=== PATIENT | female | born 1950 | race Caucasian/White ===

== ENCOUNTER 2023-02-20 11:49 | Inpatient (IN) | payer MEDICARE, SELFPAY ==
[2023-02-20] VITALS (41 sets, daily range): BP systolic 72–120; BP diastolic 42–73; PULSE 73–105; RESP 16–35; TEMP 36.4–36.8; O2SAT 73–98
--- NOTE | ~2023-02-20 | XR_ITS ---
EXAMINATION: XR chest 1V portable 02/20/2023 14:07 INDICATION: Shortness of breath PROCEDURE: AP portable chest COMPARISON: No prior studies for comparison. FINDINGS: The lungs are clear. The cardiomediastinal silhouette is within normal limits. There are no pleural effusions. There is no pneumothorax suspected. IMPRESSION: 1: NO ACUTE CARDIOPULMONARY DISEASE. Reviewed, dictated and finalized at location L. ET AND PULLEY MACHINE OPERATOR
--- NOTE | ~2023-02-20 | CT_ITS ---
EXAMINATION: CT brain wo con DATE: 02/21/2023 10:57 INDICATION: Confusion. Slurred speech. TECHNIQUE: Computed tomography (CT) of the head was performed without intravenous contrast. Sagittal and coronal reconstructions were performed. The mA was adjusted according to patient size. Iterative reconstruction technique was employed. The dose-length product was 681.00 mGy-cm. COMPARISON: None FINDINGS: No acute intracranial hemorrhage, acute infarction or abnormal extra axial fluid collection. Small ol d lacunar infarct versus more likely prominent choroid fissure cyst at the inferior left basal gangli a. Symmetric prominence of the sulci consistent with mild age-appropriate diffuse cerebral volume los s. Ventricles are normal and symmetric. No mass/mass effect. Changes of bilateral intraocular lens r eplacement. The orbits and mastoid air cells are normal. Moderate mucosal thickening throughout the p aranasal sinuses. Intracranial calcified cerebral atherosclerosis is noted. IMPRESSION: 1. No acute intracranial process. 2. Old lacunar infarct versus more likely prominent choroid fissure cyst at the inferior left basal g anglia. Reviewed, dictated and finalized at location A. RVISOR GENERAL IMPRESSION: 1. No acute intracranial process. 2. Old lacunar infarct versus more likely prominent choroid fissure cyst at the inferior left basal ganglia.
--- NOTE | ~2023-02-20 | US_ITS ---
EXAMINATION: US venous doppler [facility] DATE: 02/20/2023 16:07 INDICATION: Shortness of breath. TECHNIQUE: Grayscale images without and with compression and Doppler images of the bilateral lower ex tremity veins were obtained. COMPARISON: None FINDINGS: The right common femoral vein, profunda (deep) femoral vein, femoral vein, popliteal vein, peroneal v ein, posterior tibial veins, gastrocnemius vein, and greater saphenous vein are patent. The left common femoral vein, profunda (deep) femoral vein, femoral vein, popliteal vein, peroneal v ein, posterior tibial veins, gastrocnemius vein, and greater saphenous vein are patent. IMPRESSION: Patent bilateral lower extremity veins. No evidence of deep venous thrombosis. Reviewed, dictated and finalized at location K. SCALER
--- NOTE | ~2023-02-20 | US_ITS ---
EXAMINATION: US renal BI DATE: 02/21/2023 11:05 INDICATION: Acute renal insufficiency TECHNIQUE: Multiple ultrasound grayscale images of the kidneys were obtained. COMPARISON: None. FINDINGS: The right kidney is not visualized and likely either developmentally or surgically absent. The left k idney measures 11.6 x 6.9 x 6.0 cm. The left kidney demonstrates normal echogenicity with no hydronep hrosis or shadowing renal stones. The bladder is decompressed which limits evaluation. IMPRESSION: 1. Normal left kidney without hydronephrosis. 2. Right kidney are visualized on the other developmental were surgically absent. Correlate with clin ical/surgical history. Reviewed, dictated and finalized at location A. N CONTROL ELECTRONIC TECHNICIAN IMPRESSION: 1. Normal left kidney without hydronephrosis. 2. Right kidney are visualized on the other developmental were surgically absen t. Correlate with clinical/surgical history.
[2023-02-20] MEDS: SODIUM CHLORIDE 0.9% IV 1,000 ML 999 ML IV CONT ×3 (12:52→15:38)
[2023-02-20] MEDS: Please add drug allergy info to patient profile. 1 EACH XX (12:52)
[2023-02-20 13:20] LABS: Basophils Percent Auto 0.3 % (0.2-1.2); Eosinophils Absolute Auto 0.1 K/mm3 (0-0.3); Eosinophils Percent Auto 0.6 % (0-4.4); Hematocrit 43.5 % (37.0-47.0); Hemoglobin 14.2 g/dL (12.0-15.0); Immature Granulocyte Absolute 0.04 K/mm3 (0.00-0.031); Immature Granulocyte Percent A 0.4 % (0-0.5); Lymphocytes Absolute Auto 1.72 K/mm3 (0.9-3.2); Lymphocytes Percent Auto 16.9 % (18.3-44.2); Mean Corpuscular HGB Conc 32.6 g/dl (32-36); Mean Corpuscular Hemoglobin 31.8 pg (26-34); Mean Corpuscular Volume 97.3 fl (80-100); Mean Platelet Volume 10.9 fl (7.4-10.4); Monocytes Absolute Auto 1.2 K/mm3 (0.1-0.6); Monocytes Percent Auto 12.1 % (2.6-8.5); Neutrophils Absolute Auto 7.1 K/mm3 (1.3-6.7); Neutrophils Percent Auto 69.7 % (45.5-73.1); Platelet Count Result 255 k/mm3 (150-375); Red Blood Count 4.47 M/mm3 (4.2-5.4); Red Cell Distribution Width 13.2 % (11.5-14.5); White Blood Count 10.2 K/mm3 (4.5-10.0)
--- NOTE | 2023-02-20 13:23 | ECG_ITS ---
Measurements Intervals [place] Rate: 84 P: AR: 0 QRS: -4 QRSD: 84 T: 72 QT: 353 QTc: 419 Interpretive Statements ATRIAL FIBRILLATION MINIMAL VOLTAGE CRITERIA FOR LVH, CONSIDER NORMAL VARIANT [MEETS CRITERIA IN ONE OF: R(aVL), S(V1), R(V5), R(V5/V6)+S(V1)] INFERIOR MYOCARDIAL INFARCTION , PROBABLY OLD [40+ ms Q WAVE AND/OR ST/T ABNORMALITY IN II/aVF] NO PREVIOUS ECG AVAILABLE FOR COMPARISON Electronically Signed On 02-20-2023 16:09:11 WARRANTY COORDINATOR by Kim Mcclendon M.D.
--- NOTE | 2023-02-20 13:24 | ED.SOB ---
HPI - SOB/Dyspnea General Chief Complaint: Shortness of Breath/Dyspnea Stated Complaint: difficulty breathing Time Seen by Provider: 02/20/23 13:10 Source: patient and RN notes reviewed Mode of arrival: ambulatory Limitations: altered mental status History of Present Illness HPI Narrative: This is a 72 year old with history of hypothyroid, dementia, hypertension who presents with family for evaluation of difficulty breathing and confusion. Her family states patient is in town to visit a sister and she is from [place], [place]. THey think that patient was takin her medications wrong on arrival. They state 2 days ago she had an episode in which she seems to have difficulty breathing but that resolved. Today they noticed that she seem to have difficulty again . PAtient reports she has been having shortness of breath for 1 week. She denies cough, runny nose or congestion. She reports nausea and vomiting today. She also reports diarrhea starting this morning. She has intermittent epigastric pain. She denies any fever or chills. Related Data Allergies Allergy/AdvReac Type Severity Reaction Status Date / Time Penicillins AdvReac Unknown Verified 02/20/23 13:24 Review of Systems Constitutional: Constitutional: Reports weakness Cardiovascular: Cardiovascular: Denies syncope, Denies rapid heart rate, Denies irregular heart rhythm, Denies leg edema and Reports dyspnea Respiratory: Respiratory: Denies chest congestion, Denies hemoptysis, Denies excessive phlegm production and Denies dyspnea Gastrointestinal: Gastrointestinal: Reports abdominal pain, Denies hematochezia, Reports diarrhea, Reports nausea and Denies vomiting Genitourinary: Genitourinary: Denies hematuria and Denies dysuria Musculoskeletal: Musculoskeletal: Denies joint swelling, Denies loss of height and Denies muscle weakness Neurologic: Denies syncope, Denies focal weakness and Denies weakness [facility] Past Medical History Medical History (Updated 02/20/23 @ 22:38 by Ariella Ponce MD) Hyperlipidemia Hypertension Hypothyroidism Renal cell carcinoma Surgical History Surgical History (Updated 02/20/23 @ 22:20 by Mirella Sutton PA-C) History of hysterectomy History of nephrectomy Family History Family History (Updated 02/20/23 @ 22:21 by Mirella Sutton PA-C) Other Family history non-contributory Social History Social History (Updated 02/20/23 @ 22:21 by Mirella Sutton PA-C) Social History: Surrogate medical decision maker: Kinjal Hernandez, friend. Code status: Full code. Smoking status: Never smoker Alcohol intake: never Substance use: never Additional living arrangements comments: Lives in [place]. 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 Exam Const: General: alert and ill appearing Orientation/consciousness: patient oriented x3 HENMT: Head: normal to inspection Mouth: Yes dry mucous membranes Throat: uvula midline Other: dry lips Eyes: Pupils: Equal, round and reactive pupils present EOM: EOMs intact bilaterally Neck: Neck: normal visual inspection Chest: Chest palpation & inspection: normal inspection of the chest Resp: Effort & Inspection: normal respiratory effort Auscultation: clear to auscultation bilaterally Cardio: Rate: regular rate Rhythm: regular rhythm Heart sounds: no murmurs GI: GI Palp: Yes Soft to palpation, No Tenderness to palpation present (GI) and No Guarding due to palpation present (GI) Auscultation: normal bowel sounds Skin: General skin exam: normal color Rashes: no rashes Wounds: no wounds Neuro: General: patient oriented x3, moves all extremities and CN's II-XI intact bilaterally Other: tardive dyskinesia mouth rolling present Extrem: General: normal to inspection Psych: Mental Status: mental status grossly normal Affect: normal affect Attitude: cooperative Course Reevaluation(s) Reevaluation #1: I Discussed with
[2023-02-20 13:29] LABS: Alanine Aminotransferase 29 U/L (6-35); Albumin Level 4.3 g/dL (3.5-5.1); Alkaline Phosphatase 119 U/L (38-126); Anion Gap 12 mmol/L (8-16); Aspartate Amino Transferase 54 U/L (14-36); Bilirubin,Total 0.6 mg/dL (0.2-1.3); Blood Urea Nitrogen 23 mg/dL (7-17); Calcium 10.2 mg/dL (8.4-10.2); Carbon Dioxide 18 mmol/L (22-30); Chloride 111 mmol/L (98-107); Estimated CRCL calculation 27 ml/min; Estimated Glomerular Filt Rate 23; Glucose 167 mg/dL (65-110); Sodium 141 mmol/L (137-145)
[2023-02-20 13:48] LABS: Base Excess ABG -6.4 mEq/l (+/-2.0); Carboxyhemoglobin 0.3 % THb (0-2.0); Fractional Inspired Oxygen 28 %; HCO3 ABG 17.6 mEq/l (22.0-26.0); Methemoglobin ABG 0.2 %THb (0-1.5); Oxygen Content ABG 17.5 %vol (16.0-22.0); Oxygen Saturation ABG 94.2 % (95.0-100.0); Oxyhemoglobin 92.2 % THb (90.0-100.0); PCO2 ABG 30.9 mmHg (35.0-45.0); PO2 ABG 71.2 mmHg (80.0-100.0); PO2 FiO2 Ratio Arterial Blood 2.54 %; Reduced Hemoglobin 7.3 %THb (0-5.0); Total Hemoglobin 13.5 g/dL (12.0-18.0); pH ABG 7.373 (7.350-7.450)
[2023-02-20] MEDS: ONDANSETRON INJ 4 MG/2 ML VIAL IV PUSH (13:48)
[2023-02-20 13:49] LABS: Device NASAL CANNULA; Modified Allen's Test Pass; Site Drawn LEFT RADIAL
[2023-02-20 14:08] LABS: Prothrombin Time 13.2 Seconds (11.1-14.7)
[2023-02-20 14:10] LABS: Partial Thromboplastin Time 27.1 SECONDS (22.3-36.8)
[2023-02-20 14:25] LABS: Lipase 128 U/L (23-300); Magnesium 1.9 mg/dL (1.6-2.3)
[2023-02-20 14:46] LABS: NT Pro B Type Natriuretic Pept 4200 pg/mL (19.9-100); Troponin I 0.072 ng/mL (0.000-0.034)
[2023-02-20 15:11] LABS: Influenza A QL RT-PCR Positive (Negative); Influenza B QL RT-PCR Negative (Negative); RSV RNA, RT-PCR Negative (Negative); SARS-CoV-2 RNA PCR Negative (Negative)
[2023-02-20 17:19] LABS: Troponin I 0.072 ng/mL (0.000-0.034)
[2023-02-20] MEDS: OSELTAMIVIR PHOSPHATE 30 MG CAPSULE PO (17:32)
[2023-02-20] MEDS: ENOXAPARIN 100 MG/ML SYRINGE SUB-Q (17:33)
[2023-02-20 19:48] LABS: Appearance Urine Turbid (Clear); Bacteria Urine 4+ /hpf; Bilirubin Urine Negative (Negative); Color Urine Dark Yellow (Yellow); Glucose Urine UA Negative (Negative); Ketones Urine Trace mg/dL (Negative); Leukocyte Esterase Ur 2+ LEU/UL (Negative); Need Manual Microscopic Reviewed; Nitrate Urine Positive (Negative); Non Pathogenic Casts >20; Protein Urine 2+ mg/dL (Negative); Specific Grav Ur 1.018 (1.001-1.035); Squamous Epithelial Cell Urine Few /hpf (Few); Urobilinogen Urine 0.2 mg/dL (<2.0); WBC Urine >100 /hpf; pH Urine 5.5 (5.0-9.0)
[2023-02-20 19:49] LABS: Add Urine Microscopic? YES
--- NOTE | 2023-02-20 22:15 | PM.IMHP ---
H&P: HPI History of Present Illness Date/Time: 02/20/23 17:30 Chief Complaint: Shortness of breath. Narrative: This is a 72-year-old female with hypertension, hyperlipidemia, hypothyroidism, and history of renal cell carcinoma status post nephrectomy who presented to the emergency department via private vehicle for evaluation of shortness of breath. The patient provides the following history. She is from [place], [place] and flew in 3 days ago 12 Haris with family members. She felt okay upon arrival however the following day she developed a wet but nonproductive cough, sore throat, sinus congestion, and shortness of breath with exertion. This morning she reports having multiple episodes of nonbloody diarrhea as well. She came in today as she is feeling more short of breath and quite weak. She denies sick contacts. She has not had a fever to her knowledge though she does endorse sweats. Appetite is okay and she denies nausea and vomiting. She denies chest and pleuritic pain. No lower extremity edema or calf pain. In the ED: She was afebrile on arrival with soft blood pressures which have responded to IV fluids. SpO2 was as low as 73% on room air and she is currently on 4 L nasal cannula at the time my evaluation. Labs were significant for WBC count of 10.2, BUN 23, creatinine 2.10, chloride 111, carbon dioxide 18, glucose 167, troponin 0.072, proBNP 4200. Urine was nitrate leukocyte esterase positive with 4+ bacteria in greater than 100 WBC. She tested positive for influenza A. Chest x-ray showed no acute findings. Lower extremity venous Doppler ultrasounds were negative for DVT. So far she has received 3 L normal saline, 1 g ceftriaxone, Tamiflu 30 mg, and 100 mg of enoxaparin. She is being admitted in this setting for further treatment evaluation. Review of Systems Review of Systems: Twelve systems were reviewed and are negative except for as per HPI. [facility] Past Medical History Medical History (Updated 02/20/23 @ 22:23 by Mirella Sutton PA-C) Hyperlipidemia Hypertension Hypothyroidism Renal cell carcinoma Surgical History Surgical History (Updated 02/20/23 @ 22:20 by Mirella Sutton PA-C) History of hysterectomy History of nephrectomy Family History Family History (Updated 02/20/23 @ 22:21 by Mirella Sutton PA-C) Other Family history non-contributory Social History Social History (Updated 02/20/23 @ 22:21 by Mirella Sutton PA-C) Social History: Surrogate medical decision maker: Kinjal Hernandez, friend. Code status: Full code. Smoking status: Never smoker Alcohol intake: never Substance use: never Additional living arrangements comments: Lives in [place]. 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 Meds Home Medications and Allergies Allergies Allergy/AdvReac Type Severity Reaction Status Date / Time Penicillins AdvReac Unknown Verified 02/20/23 13:24 Vital Signs Vital Signs - 24 hr 02/20/23 11:53 02/20/23 12:43 02/20/23 12:43 Temperature 97.6 F 98.2 F Pulse Rate 80 92 105 H Respiratory Rate 16 32 H Blood Pressure 72/48 L 84/46 L Pulse Oximetry 95 88 L Oxygen Delivery Room Air Room Air 02/20/23 12:38 02/20/23 12:45 02/20/23 12:46 Temperature Pulse Rate 86 89 89 Respiratory Rate 34 H 35 H 24 H Blood Pressure 84/53 L Pulse Oximetry 93 94 95 Oxygen Delivery 02/20/23 13:00 02/20/23 13:01 02/20/23 13:07 Temperature Pulse Rate 97 82 79 Respiratory Rate 27 H 28 H 24 H Blood Pressure 72/52 L 78/47 L Pulse Oximetry 96 95 96 Oxygen Delivery 02/20/23 13:20 02/20/23 13:30 02/20/23 13:31 Temperature Pulse Rate 93 85 79 Respiratory Rate 28 H 32 H 25 H Blood Pressure 76/54 L Pulse Oximetry 97 89 L Oxygen Delivery 02/20/23 13:54 02/20/23 14:00 02/20/23 14:01 Temperature Pulse Rate 79 74 80 Respiratory Rate 23 H 29 H 24 H Blood Pressure 80/45 L Pulse Oximetry 73 L 96 Oxygen Delive
[2023-02-20 23:23] LABS: Troponin I 0.052 ng/mL (0.000-0.034)
--- NOTE | 2023-02-20 23:24 | ADMGEN ---
This patient, Beverley Kilgore, was admitted to IMU Room 203-01. Patient/family oriented to hospital policies and general routines including ID bracelet, bed and alarms, visiting hours, pain management, procedures, bathroom and other care routines, personal items, smoking policy, room service/diet, and visiting hours. Information on how to activate the Rapid Response Team has been discussed. Patient/Family are encouraged to report perceived risks to care and to ask questions if they do not understand what they are told or what they should do.
[2023-02-20] MEDS: LACTATED RINGERS 1,000 ML 100 ML IV CONT (23:32)
[2023-02-21] VITALS (14 sets, daily range): BP systolic 91–129; BP diastolic 49–70; PULSE 62–110; RESP 16–22; TEMP 36.3–36.9; O2SAT 93–100
[2023-02-21 04:57] LABS: Basophils Percent Auto 0.2 % (0.2-1.2); Eosinophils Absolute Auto 0.1 K/mm3 (0-0.3); Eosinophils Percent Auto 1.4 % (0-4.4); Hematocrit 33.4 % (37.0-47.0); Hemoglobin 10.6 g/dL (12.0-15.0); Immature Granulocyte Absolute 0.03 K/mm3 (0.00-0.031); Immature Granulocyte Percent A 0.5 % (0-0.5); Lymphocytes Absolute Auto 1.62 K/mm3 (0.9-3.2); Lymphocytes Percent Auto 25.6 % (18.3-44.2); Mean Corpuscular HGB Conc 31.7 g/dl (32-36); Mean Corpuscular Hemoglobin 31.7 pg (26-34); Mean Platelet Volume 10.3 fl (7.4-10.4); Monocytes Absolute Auto 0.7 K/mm3 (0.1-0.6); Monocytes Percent Auto 11.4 % (2.6-8.5); Neutrophils Absolute Auto 3.9 K/mm3 (1.3-6.7); Neutrophils Percent Auto 60.9 % (45.5-73.1); Platelet Count Result 175 k/mm3 (150-375); Red Blood Count 3.34 M/mm3 (4.2-5.4); Red Cell Distribution Width 13.3 % (11.5-14.5); White Blood Count 6.3 K/mm3 (4.5-10.0)
[2023-02-21 05:05] LABS: Hemoglobin A1C 6.3 % (<5.7)
[2023-02-21 05:09] LABS: Alanine Aminotransferase 31 U/L (6-35); Albumin Level 3.3 g/dL (3.5-5.1); Alkaline Phosphatase 92 U/L (38-126); Anion Gap 6 mmol/L (8-16); Aspartate Amino Transferase 51 U/L (14-36); Bilirubin,Total 0.4 mg/dL (0.2-1.3); Blood Urea Nitrogen 28 mg/dL (7-17); Calcium 8.7 mg/dL (8.4-10.2); Carbon Dioxide 21 mmol/L (22-30); Chloride 112 mmol/L (98-107); Estimated CRCL calculation 26 ml/min; Estimated Glomerular Filt Rate 22; Glucose 78 mg/dL (65-110); Magnesium 1.6 mg/dL (1.6-2.3); Potassium 3.9 mmol/L (3.4-5.0); Sodium 139 mmol/L (137-145)
[2023-02-21 06:01] LABS: Thyroid Stimulating Hormone Reflex 0.942 uIU/mL (0.465-4.68)
[2023-02-21] MEDS: LEVOTHYROXINE SODIUM 100 MCG TABLET PO (06:30)
[2023-02-21] MEDS: ATORVASTATIN 40 MG TABLET PO (09:25)
[2023-02-21] MEDS: METOPROLOL SUCCINATE EXT REL 50 MG TABCR PO (09:26)
[2023-02-21] MEDS: MEMANTINE 5 MG TABLET BY MOUTH ×2 (09:26→20:39)
[2023-02-21] MEDS: ENOXAPARIN 40 MG/0.4 ML SYRINGE SUB-Q (09:26)
[2023-02-21] MEDS: TRIHEXYPHENIDYL HCL 2 MG TABLET PO (09:26)
[2023-02-21] MEDS: OSELTAMIVIR PHOSPHATE 30 MG CAPSULE PO (09:26)
[2023-02-21] MEDS: busPIRone HCL 5 MG TABLET 15 MG PO ×2 (09:26→16:23)
--- NOTE | 2023-02-21 09:26 | PM.IMPN ---
Progress Note: A&P Assessment and Plan (1) Influenza A: Code(s): J10.1 - Influenza due to other identified influenza virus with other respiratory manifestations Status: Acute Assessment and Plan: IV fluids, supportive care, f/u blood cultures Initiated on Tamiflu 02/20 (2) Urinary tract infection: Code(s): N39.0 - Urinary tract infection, site not specified Status: Acute Assessment and Plan: Rocephin initiated 02/20 Follow-up urine culture (3) Acute kidney injury: Code(s): N17.9 - Acute kidney failure, unspecified Status: Acute Assessment and Plan: NS at 100 ml/hr, slightly worsened, monitor Renal US ordered and pending (4) Hypertension: Code(s): I10 - Essential (primary) hypertension Status: Acute Assessment and Plan: Blood pressures reviewed 02/21 Somewhat soft, improving with IVF (5) Hypothyroidism: Code(s): E03.9 - Hypothyroidism, unspecified Status: Acute Assessment and Plan: Continue levothyroxine, TSH within normal limits (6) Shortness of breath: Code(s): R06.02 - Shortness of breath Status: Acute Assessment and Plan: Likely 2/2 influenza A Patient was given Lovenox therapeutic dose x1 for possible PE, Wells' criteria puts patient at low risk, hold off on further workup for PE at this time, Dopplers negative for DVT Plan DVT prophylaxis with lovenox GI prophylaxis not indicated Code status full code Subjective Date/time seen: 02/21/23 09:26 Interval history: 72-year-old female with history of hypertension, hyperlipidemia hypothyroidism as well as renal cell carcinoma is presenting with shortness of breath currently being treated for influenza as well as UTI. No overnight events noted. No chest pain or shortness of breath. No nausea, vomiting or diarrhea. No fevers or chills. Review of Systems Review of Systems: 12 point review of systems was assessed and was negative except as noted in the HPI Exam Narrative: General: No acute distress, alert and oriented per baseline HEENT: Atraumatic, normocephalic, mucous membranes moist CV: Regular rate and rhythm, S1, S2 Lungs: Coarse breath sounds throughout, diminished at bases, no wheeze, scattered crackles Abdomen: Soft, nontender, nondistended Extremities: Normal to inspection Skin: No rashes noted, no lesions or wounds seen Psych: Euthymic, normal affect Objective Data Vital Signs Vital Signs: Vital Signs - 24 hr 02/20/23 11:53 02/20/23 12:43 02/20/23 12:43 Temperature 97.6 F 98.2 F Pulse Rate 80 92 105 H Respiratory Rate 16 32 H Blood Pressure 72/48 L 84/46 L Pulse Oximetry 95 88 L Oxygen Delivery Room Air Room Air 02/20/23 12:38 02/20/23 12:45 02/20/23 12:46 Temperature Pulse Rate 86 89 89 Respiratory Rate 34 H 35 H 24 H Blood Pressure 84/53 L Pulse Oximetry 93 94 95 Oxygen Delivery 02/20/23 13:00 02/20/23 13:01 02/20/23 13:07 Temperature Pulse Rate 97 82 79 Respiratory Rate 27 H 28 H 24 H Blood Pressure 72/52 L 78/47 L Pulse Oximetry 96 95 96 Oxygen Delivery 02/20/23 13:20 02/20/23 13:30 02/20/23 13:31 Temperature Pulse Rate 93 85 79 Respiratory Rate 28 H 32 H 25 H Blood Pressure 76/54 L Pulse Oximetry 97 89 L Oxygen Delivery 02/20/23 13:54 02/20/23 14:00 02/20/23 14:01 Temperature Pulse Rate 79 74 80 Respiratory Rate 23 H 29 H 24 H Blood Pressure 80/45 L Pulse Oximetry 73 L 96 Oxygen Delivery 02/20/23 14:35 02/20/23 14:37 02/20/23 14:45 Temperature Pulse Rate 78 81 83 Respiratory Rate 26 H 29 H 24 H Blood Pressure 94/63 L Pulse Oximetry 98 Oxygen Delivery 02/20/23 14:46 02/20/23 14:53 02/20/23 15:00 Temperature Pulse Rate 75 75 79 Respiratory Rate 23 H 25 H 23 H Blood Pressure 72/42 L 97/61 L Pulse Oximetry Oxygen Delivery 02/20/23 15:01 02/20/23 15:12
[2023-02-21] MEDS: SODIUM CHLORIDE 0.9% IV 1,000 ML 100 ML IV CONT (16:23)
[2023-02-21] MEDS: OLANZapine 2.5 MG TABLET PO (20:40)
--- NOTE | 2023-02-21 22:29 | ECHO_ITS ---
Patient Info Name: Beverley Kilgore Age: 72 years : 1950 Gender: Female Ht: 66 in Wt: 236 lbs BSA: 2.28 m2 HR: 82 bpm BP: 110 / 49 mmHg Heart Rhythm: Sinus Rhythm Technical Quality: Good Exam Date: 02/21/2023 9:58 AM Exam Location: Echo Lab Patient Status: Inpatient Admit Date: 02/20/2023 Staff Ordering Physician: Mirella Sutton PA-C Supervisor Testing: Reid Berman RDCS Attending Provider: Yosef Jones MD Referring Physician: Herman WILKINS; Exam Type: CA echo doppler color flow Study Info Indications - elevated troponin Complete two-dimensional, color flow and Doppler transthoracic echocardiogram is performed. Summary 1. Complete two-dimensional, color flow and Doppler transthoracic echocardiogram is performed. 2. Left ventricular chamber dimension is normal. 3. Left ventricular systolic function is normal, estimated at 65-70%. 4. There is moderately increased left ventricular wall thickness. 5. The left ventricular diastolic function is grade I diastolic dysfunction. 6. Right ventricular systolic function is normal. 7. Left atrial chamber dimension is mildly enlarged. 8. There is moderate aortic valve calcification. 9. There is mild aortic valve stenosis. 10. There is mild tricuspid valve regurgitation. Left Ventricle Left ventricular chamber dimension is normal. Left ventricular systolic function is normal, estimated at 65-70%. There is moderately increased left ventricular wall thickness. The left ventricular diastolic function is grade I diastolic dysfunction. Right Ventricle Right ventricular chamber dimension is normal. Right ventricular systolic function is normal. Left Atria Left atrial chamber dimension is mildly enlarged. Right Atria Right atrial chamber dimension is normal. Atrial Septum Intact interatrial septum visualized by color flow imaging. Aortic Valve The aortic valve is probable trileaflet. There is mild aortic valve stenosis. There is no aortic valve regurgitation. There is moderate aortic valve calcification. Pulmonic Valve The pulmonic valve is not well visualized. There is trace pulmonic regurgitation. Mitral Valve There is trace mitral valve regurgitation. Tricuspid Valve There is mild tricuspid valve regurgitation. Pericardium/Pleural There is no pericardial effusion. Inferior Vena Cava Normal inferior vena cava with >50% collapse upon inspiration consistent with normal right atrial pressure, 3 mmHg. Aorta The aortic root size at the sinus of Valsalva is normal. Left Ventricular Outflow Tract Name Value Normal LVOT 2D LVOT Diameter 2.2 cm LVOT Doppler LVOT Peak Gradient 3 mmHg LVOT Mean Gradient 2 mmHg LVOT VTI 32 cm LVOT VTI/AV VTI Ratio 0.5 LVOT Stroke Volume 125 ml LVOT CO 5.2 l/min LVOT CI 2.3 l/min/m2 Pulmonic Valve Name Value Normal
[2023-02-22] VITALS (17 sets, daily range): BP systolic 124–160; BP diastolic 48–90; PULSE 58–84; RESP 18–22; TEMP 36.5–37; O2SAT 92–99
[2023-02-22] MEDS: SODIUM CHLORIDE 0.9% IV 1,000 ML 100 ML IV CONT (04:40)
[2023-02-22] MEDS: LEVOTHYROXINE SODIUM 100 MCG TABLET PO (04:41)
[2023-02-22] MEDS: OLANZapine 10 MG INJ VIAL 2.5 MG IM (06:30)
--- NOTE | 2023-02-22 06:41 | PC.NURSE ---
Patient climbing out of bed as has been occurring throughout the night. Patient increasingly agitated with staff, stating that we are holding her here against her will and that she has family depending on her and that she needs to leave. Threatening to call 911 if we continue to hold her here. Patient also threatening to rip out peripheral IVs if we refuse to let her leave. Patient continues to be extremely suspicious of staff and what we are doing to her as far as treatment is concerned. Patient refusing to take PO Zyprexa, so Dr. Wray was called. Received orders for 2.5 mg IM Zyprexa. Patient continues to threaten staff and makes numerous attempts to get out of bed. Unable to redirect patient at this time. Will continue to monitor.
[2023-02-22] MEDS: HALOPERIDOL LACTATE 5 MG/ML VIAL IV PUSH (07:58)
[2023-02-22 08:06] LABS: Basophils Percent Auto 0.2 % (0.2-1.2); Eosinophils Absolute Auto 0.1 K/mm3 (0-0.3); Eosinophils Percent Auto 2.9 % (0-4.4); Hematocrit 32.6 % (37.0-47.0); Hemoglobin 10.5 g/dL (12.0-15.0); Immature Granulocyte Absolute 0.01 K/mm3 (0.00-0.031); Immature Granulocyte Percent A 0.2 % (0-0.5); Lymphocytes Absolute Auto 1.05 K/mm3 (0.9-3.2); Lymphocytes Percent Auto 21.9 % (18.3-44.2); Mean Corpuscular HGB Conc 32.2 g/dl (32-36); Mean Corpuscular Hemoglobin 31.4 pg (26-34); Mean Corpuscular Volume 97.6 fl (80-100); Mean Platelet Volume 9.8 fl (7.4-10.4); Monocytes Absolute Auto 0.5 K/mm3 (0.1-0.6); Monocytes Percent Auto 10.2 % (2.6-8.5); Neutrophils Absolute Auto 3.1 K/mm3 (1.3-6.7); Neutrophils Percent Auto 64.6 % (45.5-73.1); Platelet Count Result 158 k/mm3 (150-375); Red Blood Count 3.34 M/mm3 (4.2-5.4); Red Cell Distribution Width 13.2 % (11.5-14.5); White Blood Count 4.8 K/mm3 (4.5-10.0)
[2023-02-22 08:16] LABS: Alanine Aminotransferase 26 U/L (6-35); Albumin Level 3.4 g/dL (3.5-5.1); Alkaline Phosphatase 103 U/L (38-126); Anion Gap 5 mmol/L (8-16); Aspartate Amino Transferase 39 U/L (14-36); Bilirubin,Total 0.5 mg/dL (0.2-1.3); Blood Urea Nitrogen 21 mg/dL (7-17); Calcium 9.1 mg/dL (8.4-10.2); Carbon Dioxide 21 mmol/L (22-30); Chloride 115 mmol/L (98-107); Estimated CRCL calculation 38 ml/min; Estimated Glomerular Filt Rate 34; Glucose 89 mg/dL (65-110); Sodium 141 mmol/L (137-145)
--- NOTE | 2023-02-22 08:28 | PM.IMPN ---
Progress Note: A&P Assessment and Plan (1) Influenza A: Code(s): J10.1 - Influenza due to other identified influenza virus with other respiratory manifestations Status: Acute Assessment and Plan: IV fluids, supportive care, f/u blood cultures Initiated on Tamiflu 02/20 (2) Urinary tract infection: Code(s): N39.0 - Urinary tract infection, site not specified Status: Acute Assessment and Plan: Rocephin initiated 02/20 Follow-up urine culture, ecoli, sens pending (3) Acute kidney injury: Code(s): N17.9 - Acute kidney failure, unspecified Status: Acute Assessment and Plan: NS at 100 ml/hr, slightly worsened, monitor Renal US ordered and pending (4) Hypertension: Code(s): I10 - Essential (primary) hypertension Status: Acute Assessment and Plan: Blood pressures reviewed 02/22 Somewhat soft, improving with IVF (5) Hypothyroidism: Code(s): E03.9 - Hypothyroidism, unspecified Status: Acute Assessment and Plan: Continue levothyroxine, TSH within normal limits (6) Shortness of breath: Code(s): R06.02 - Shortness of breath Status: Acute Assessment and Plan: Likely 2/2 influenza A Patient was given Lovenox therapeutic dose x1 for possible PE, Wells' criteria puts patient at low risk, hold off on further workup for PE at this time, Dopplers negative for DVT Plan Discharge planning, likely will need rehab/nursing facility at discharge DVT prophylaxis with lovenox GI prophylaxis not indicated Code status full code Subjective Date/time seen: 02/22/23 08:28 Interval history: 72-year-old female with history of hypertension, hyperlipidemia hypothyroidism as well as renal cell carcinoma is presenting with shortness of breath currently being treated for influenza as well as UTI. Significant sundowning noted overnight. Received zyprexa, haldol, ativan and is now resting comfortably. No chest pain or shortness of breath. No nausea, vomiting or diarrhea. No fevers or chills. Review of Systems Review of Systems: ROS unobtainable: Yes unobtainable due to mental status Exam Narrative: General: No acute distress, somnolent, easily arousable HEENT: Atraumatic, normocephalic, mucous membranes moist CV: Regular rate and rhythm, S1, S2 Lungs: CTAB, no wheeze Abdomen: Soft, nontender, nondistended Extremities: Normal to inspection Skin: No rashes noted, no lesions or wounds seen Psych: Unable to assess Objective Data Vital Signs Vital Signs: Vital Signs - 24 hr 02/21/23 12:00 02/21/23 10:00 02/21/23 12:00 Temperature 98.3 F Pulse Rate 66 72 75 Respiratory Rate 22 H Blood Pressure 129/52 L Pulse Oximetry 97 Oxygen Delivery 02/21/23 14:00 02/21/23 12:00 02/21/23 16:00 Temperature 97.8 F Pulse Rate 65 65 110 H Respiratory Rate 22 H 20 Blood Pressure 115/51 L Pulse Oximetry 97 93 Oxygen Delivery Room Air 02/21/23 16:00 02/21/23 16:00 02/21/23 18:00 Temperature Pulse Rate 110 H 69 75 Respiratory Rate 20 Blood Pressure Pulse Oximetry 93 Oxygen Delivery Room Air 02/21/23 20:00 02/21/23 20:00 02/21/23 20:00 Temperature 97.3 F L Pulse Rate 75 64 64 Respiratory Rate 20 20 Blood Pressure 116/65 Pulse Oximetry 93 95 Oxygen Delivery Room Air 02/21/23 22:00 02/22/23 00:00 02/22/23 00:34 Temperature Pulse Rate 62 62 71 Respiratory Rate 20 20 Blood Pressure 160/70 H Pulse Oximetry 95 96 Oxygen Delivery Room Air 02/22/23 00:00 02/22/23 02:00 02/22/23 04:00 Temperature 97.7 F Pulse Rate 67 64 78 Respiratory Rate 20 Blood Pressure 152/83 H Pulse Oximetry 96 Oxygen Delivery 02/22/23 04:00 02/22/23 04:00 02/22/23 05:59 Temperature Pulse Rate 84 84 74 Respiratory Rate 20 Blood Pressure Pulse Oximetry 96 Oxygen Delivery Room Air 02/22/23 07:39 Temperature 98.4
[2023-02-22] MEDS: METOPROLOL SUCCINATE EXT REL 50 MG TABCR PO (09:37)
[2023-02-22] MEDS: LORazepam INJ (*CRX) 2 MG/ML VIAL 1 MG IV PUSH (09:37)
[2023-02-22] MEDS: MEMANTINE 5 MG TABLET BY MOUTH ×2 (09:37→20:36)
[2023-02-22] MEDS: TRIHEXYPHENIDYL HCL 2 MG TABLET PO (09:37)
[2023-02-22] MEDS: OSELTAMIVIR PHOSPHATE 30 MG CAPSULE PO (09:37)
[2023-02-22] MEDS: busPIRone HCL 5 MG TABLET 15 MG PO ×2 (09:37→17:45)
[2023-02-22] MEDS: ATORVASTATIN 40 MG TABLET PO (09:37)
[2023-02-22] MEDS: QUEtiapine FUMARATE 12.5 MG TABLET PO (20:35)
[2023-02-22] MEDS: OLANZapine 2.5 MG TABLET PO (20:36)
[2023-02-23] VITALS (10 sets, daily range): BP systolic 126–138; BP diastolic 54–80; PULSE 62–77; RESP 18–20; TEMP 36.7–36.8; O2SAT 92–94
[2023-02-23 05:28] LABS: Basophils Percent Auto 0.3 % (0.2-1.2); Eosinophils Absolute Auto 0.1 K/mm3 (0-0.3); Eosinophils Percent Auto 1.4 % (0-4.4); Hematocrit 32.5 % (37.0-47.0); Hemoglobin 10.5 g/dL (12.0-15.0); Immature Granulocyte Absolute 0.11 K/mm3 (0.00-0.031); Immature Granulocyte Percent A 1.7 % (0-0.5); Lymphocytes Absolute Auto 1.23 K/mm3 (0.9-3.2); Lymphocytes Percent Auto 18.7 % (18.3-44.2); Mean Corpuscular HGB Conc 32.3 g/dl (32-36); Mean Corpuscular Hemoglobin 31.4 pg (26-34); Mean Corpuscular Volume 97.3 fl (80-100); Mean Platelet Volume 10.8 fl (7.4-10.4); Monocytes Absolute Auto 0.7 K/mm3 (0.1-0.6); Monocytes Percent Auto 11.1 % (2.6-8.5); Neutrophils Absolute Auto 4.4 K/mm3 (1.3-6.7); Neutrophils Percent Auto 66.8 % (45.5-73.1); Platelet Count Result 166 k/mm3 (150-375); Red Blood Count 3.34 M/mm3 (4.2-5.4); Red Cell Distribution Width 13.2 % (11.5-14.5); White Blood Count 6.6 K/mm3 (4.5-10.0)
[2023-02-23 05:33] LABS: Alanine Aminotransferase 36 U/L (6-35); Albumin Level 3.3 g/dL (3.5-5.1); Alkaline Phosphatase 128 U/L (38-126); Anion Gap 3 mmol/L (8-16); Aspartate Amino Transferase 46 U/L (14-36); Bilirubin,Total 0.5 mg/dL (0.2-1.3); Blood Urea Nitrogen 17 mg/dL (7-17); Calcium 9.2 mg/dL (8.4-10.2); Carbon Dioxide 23 mmol/L (22-30); Chloride 113 mmol/L (98-107); Estimated CRCL calculation 41 ml/min; Estimated Glomerular Filt Rate 37; Glucose 124 mg/dL (65-110); Potassium 4.3 mmol/L (3.4-5.0); Sodium 139 mmol/L (137-145)
[2023-02-23] MEDS: LEVOTHYROXINE SODIUM 100 MCG TABLET PO (05:45)
[2023-02-23] MEDS: OSELTAMIVIR PHOSPHATE 30 MG CAPSULE PO (08:39)
[2023-02-23] MEDS: MEMANTINE 5 MG TABLET BY MOUTH (08:39)
[2023-02-23] MEDS: ATORVASTATIN 40 MG TABLET PO (08:39)
[2023-02-23] MEDS: ENOXAPARIN 40 MG/0.4 ML SYRINGE SUB-Q (08:39)
[2023-02-23] MEDS: TRIHEXYPHENIDYL HCL 2 MG TABLET PO (08:39)
[2023-02-23] MEDS: busPIRone HCL 5 MG TABLET 15 MG PO (08:39)
[2023-02-23] MEDS: METOPROLOL SUCCINATE EXT REL 50 MG TABCR PO (08:39)
--- NOTE | 2023-02-23 09:59 | PM.DS ---
DS: Admitting Diagnosis Discharge Date 02/23/23 Admitting Diagnosis sob DS: Discharge Diagnosis Discharge Diagnosis (1) Influenza A: Code(s): J10.1 - Influenza due to other identified influenza virus with other respiratory manifestations Status: Acute Assessment and Plan: IV fluids, supportive care, f/u blood cultures Initiated on Tamiflu 02/20 (2) Urinary tract infection: Code(s): N39.0 - Urinary tract infection, site not specified Status: Acute Assessment and Plan: Rocephin initiated 02/20 Follow-up urine culture, ecoli, sens pending (3) Acute kidney injury: Code(s): N17.9 - Acute kidney failure, unspecified Status: Acute Assessment and Plan: NS at 100 ml/hr, slightly worsened, monitor Renal US ordered and pending (4) Hypertension: Code(s): I10 - Essential (primary) hypertension Status: Acute Assessment and Plan: Blood pressures reviewed 02/22 Somewhat soft, improving with IVF (5) Hypothyroidism: Code(s): E03.9 - Hypothyroidism, unspecified Status: Acute Assessment and Plan: Continue levothyroxine, TSH within normal limits (6) Shortness of breath: Code(s): R06.02 - Shortness of breath Status: Acute Assessment and Plan: Likely 2/2 influenza A Patient was given Lovenox therapeutic dose x1 for possible PE, Wells' criteria puts patient at low risk, hold off on further workup for PE at this time, Dopplers negative for DVT Plan Discharge planning, likely will need rehab/nursing facility at discharge DVT prophylaxis with lovenox GI prophylaxis not indicated Code status full code DS: Summary Hospital Course Hospital Course: 72-year-old female with history of hypertension, hyperlipidemia hypothyroidism as well as renal cell carcinoma is presenting with shortness of breath currently being treated for influenza as well as UTI. Patient found to be positive for influenza A started on Tamiflu. TSH checked was in normal limits, levothyroxine continued. Blood pressure remained stable. She did have a mild acute kidney injury that resolved with IV fluids. She was found to have a E coli UTI treated with antibiotics and discharged on Keflex for this. Patient did develop acute delirium likely superimposed on chronic dementia. She responded well to Seroquel. She was discharged in stable condition with close outpatient follow-up. Please see above and med rec for details. Time Spent with Patient Time attestation: Total time spent providing and/or coordinating discharge services: Exam Narrative: General: No acute distress, somnolent, easily arousable HEENT: Atraumatic, normocephalic, mucous membranes moist CV: Regular rate and rhythm, S1, S2 Lungs: CTAB, no wheeze Abdomen: Soft, nontender, nondistended Extremities: Normal to inspection Skin: No rashes noted, no lesions or wounds seen Psych: Unable to assess DS: Data Data Completed and Pending Labs on day of discharge: Labs from last 24 hours 02/23/23 04:11 WBC 6.6 RBC 3.34 L Hgb 10.5 L Hct 32.5 L MCV 97.3 MCH 31.4 MCHC 32.3 RDW 13.2 Plt Count 166 MPV 10.8 H Immature Gran % (Auto) 1.7 H Neut % (Auto) 66.8 Lymph % (Auto) 18.7 [place] % (Auto) 11.1 H Eos % (Auto) 1.4 Baso % (Auto) 0.3 Lymph # (Auto) 1.23 [place] # (Auto) 0.7 H Eos # (Auto) 0.1 Baso # (Auto) 0.0 Abs Immat Gran (auto) 0.11 H Absolute Neuts (auto) 4.4 Absolute Nucleated RBC 0.0 Nucleated RBC % 0.0 Sodium 139 Potassium 4.3 Chloride 113 H Carbon Dioxide 23 Anion Gap 3 L BUN 17 Creatinine 1.40 H Estim Creat Clear Calc 41 Estimated GFR 37 L Glucose 124 H Calcium 9.2 Total Bilirubin 0.5 AST 46 H ALT 36 H Alkaline Phosphatase 128 H Total Protein 6.0 L Albumin 3.3 L Preliminary micro results at discharge 02/20/23 19:09 Urine Culture - Preliminary Urine Clean Catch Escherichia Coli
[2023-02-23] MEDS: OLANZapine 2.5 MG TABLET PO (11:28)
--- NOTE | 2023-02-23 11:35 | PC.NURSE ---
Family requesting pt to have some kind of anti-anxiety medication prior to 12 [address] ride home. Zyprexa given prior to pt being discharged.
== END 2023-02-23 11:34 | disposition home or self-care (01) | DRG 194 ==
LOC: ANHED 13:31 → ANHIMU 22:31
PROVIDERS: Emergency Medicine; Physician Assistant; Admitting Provider Family Medicine; Emergency Provider General Practice; Visit Provider Student in an Organized Health Care Education/Training Program
DX: J10.1 Influenza due to other identified influenza virus with other respiratory manifestations (principal); F05 Delirium due to known physiological condition; N17.9 Acute kidney failure, unspecified; N39.0 Urinary tract infection, site not specified; E03.9 Hypothyroidism, unspecified; F03.90 Unspecified dementia, unspecified severity, without behavioral disturbance, psychotic disturbance, mood disturbance, and anxiety; I10 Essential (primary) hypertension; E78.5 Hyperlipidemia, unspecified; Z85.528 Personal history of other malignant neoplasm of kidney; R79.89 Other specified abnormal findings of blood chemistry; I95.9 Hypotension, unspecified; R06.02 Shortness of breath; B96.20 Unspecified Escherichia coli [E. coli] as the cause of diseases classified elsewhere
CPT/HCPCS: 36415; 36600; 70450; 71045; 76775; 80053; 81001; 82375; 82805; 83036; 83050; 83605; 83690; 83735; 83880; 84443; 84484; 85025; 85610; 85730; 87040; 87077; 87086; 87186; 87637; 93005; 93306; 93970; 96361; 96374; 99285; A9270; J0696; J1630; J1650; J2060; J2359; J2405; J7030; J7120